=== PATIENT | male | born 1960 | race African-American/Black ===

== ENCOUNTER 2017-05-12 08:21 | Emergency (ER) | payer BC, SELFPAY ==
[2017-05-12] MEDS ORDERED: Lidocaine 1% (PF) 30 ML VIAL ONE (08:40)
[2017-05-12] MEDS ORDERED: Adacel (T-DAP) 0.5 ML VIAL ONE (08:46)
== END 2017-05-12 09:23 | disposition home or self-care (01) ==
LOC: ERS 08:21
DX: S61.412A Laceration without foreign body of left hand, initial encounter (principal); Z23 Encounter for immunization; E11.9 Type 2 diabetes mellitus without complications; I10 Essential (primary) hypertension; W26.0XXA Contact with knife, initial encounter
CPT/HCPCS: 12001; 90471; 90715; J2001

== ENCOUNTER 2025-02-28 17:24 | Emergency (ER) | payer OTHER | END 2025-02-28 18:55 | disposition home or self-care (01) | LOC: ERS 17:24 | DX: R42 Dizziness and giddiness (principal); R29.700 NIHSS score 0; I10 Essential (primary) hypertension; E11.9 Type 2 diabetes mellitus without complications; Z79.899 Other long term (current) drug therapy | CPT/HCPCS: 99283 ==